=== PATIENT | female | born 1925 | race Caucasian/White ===

== ENCOUNTER → 2016-03-15 | Outpatient (CLI) | payer OTHER ==
[~2016-03-15] MED LIST: CAPTOPRIL PO; HYDR-1421; ROPI1TAB22 PO
== END | disposition home or self-care (01) ==
LOC: XYW 10:03
PROVIDERS: ATTEND Family Medicine
DX: Z01.810 Encounter for preprocedural cardiovascular examination (principal); I69.359 Hemiplegia and hemiparesis following cerebral infarction affecting unspecified side; I10 Essential (primary) hypertension; M16.12 Unilateral primary osteoarthritis, left hip; I34.2 Nonrheumatic mitral (valve) stenosis; I35.0 Nonrheumatic aortic (valve) stenosis; M16.52 Unilateral post-traumatic osteoarthritis, left hip; Z86.79 Personal history of other diseases of the circulatory system; M25.852 Other specified joint disorders, left hip
CPT/HCPCS: 93306

== ENCOUNTER → 2016-04-26 | Outpatient (CLI) | payer OTHER | END | disposition home or self-care (01) | LOC: LAB 12:24 | PROVIDERS: ATTEND Family Medicine | DX: M19.90 Unspecified osteoarthritis, unspecified site (principal) | CPT/HCPCS: 36415; 85652; 86141 ==

== ENCOUNTER 2016-05-24 14:43 | Emergency (ER) | payer OTHER ==
[~2016-05-24] VITALS: Ht 162.6 cm; Wt 69.9 kg
[2016-05-24 15:25] LABS: Basophils # (auto) 0.1 uL; Basophils % (auto) 1.7 % (0.0-2.0); Eosinophils # (auto) 0.1 uL; Eosinophils % (auto) 1.5 % (0.0-7.0); Hematocrit 39.9 % (36.0-46.0); Hemoglobin 13.4 g/dL (12.2-16.2); Lymphocytes # (auto) 1.3 uL; Lymphocytes % (auto) 25.8 % (10.0-50.0); Mean Corpuscular Hemoglobin 30.1 pg (28.0-32.0); Mean Corpuscular Hgb Conc. 33.6 g/dL (32.0-36.0); Mean Corpuscular Volume 89.6 fL (80.0-100.0); Mean Platelet Volume 8.9 fL (7.4-10.4); Monocytes # (auto) 0.6 uL; Monocytes % (auto) 12.6 % (0.0-12.0); Neutrophils # (auto) 2.9 uL; Neutrophils % (auto) 58.4 % (37.0-80.0); Platelet Count (auto) 232 10^3/uL (140-450); Red Cell Distribution Width 14.8 % (11.6-16.0)
[2016-05-24 15:57] LABS: Albumin 3.5 g/dL (3.4-5.0); Alkaline Phosphatase 92 U/L (45-117); Anion Gap 9 (5-15); Aspartate Aminotransferase 15 U/L (15-37); BUN/Creatinine Ratio 30.8; Bilirubin, Total 0.4 mg/dL (0.2-1.0); Blood Urea Nitrogen 28 mg/dL (7-18); Calcium 9.1 mg/dL (8.5-10.1); Carbon Dioxide 28 mmol/L (21-32); Chloride 106 mmol/L (98-107); GFR African American 75 mL/min; GFR Non-African American 62 mL/min; Glucose 98 mg/dL (74-106); Magnesium 2.3 mg/dL (1.6-2.6); Potassium 4.2 mmol/L (3.5-5.1); Sodium 143 mmol/L (136-145); Total Protein 6.7 g/dL (6.4-8.2)
[2016-05-24] MEDS ORDERED: FUROSEMIDE 20 MG/2 ML VIAL IV ONE (17:00)
[2016-05-24 17:08] VITALS: BP 129/65
== END 2016-05-24 17:26 | disposition home or self-care (01) ==
LOC: EDBD 14:43 → ER 15:07
DX: I11.0 Hypertensive heart disease with heart failure (principal); I50.9 Heart failure, unspecified; M79.1 Myalgia; M62.830 Muscle spasm of back; E78.5 Hyperlipidemia, unspecified; R44.3 Hallucinations, unspecified; R42 Dizziness and giddiness; Z86.73 Personal history of transient ischemic attack (TIA), and cerebral infarction without residual deficits; Z88.8 Allergy status to other drugs, medicaments and biological substances
CPT/HCPCS: 36415; 70450; 71020; 73501; 80053; 80320; 83735; 84484; 85025; 96374; 99285; J1940